=== PATIENT | male | born 1945 | race Asian ===

== ENCOUNTER 2018-10-16 14:38 | Emergency (ER) | payer OTHER ==
[~2018-10-16] VITALS: Ht 182.9 cm; Wt 93.0 kg
[2018-10-16 14:45] VITALS: BP 126/75; TEMP 97.4
== END 2018-10-16 17:13 | disposition home or self-care (01) ==
LOC: ED 14:38
PROC: 08C0XZZ Extirpation of Matter from Right Eye, External Approach (ICD-10-PCS; principal; 2018-10-16)
DX: H11.31 Conjunctival hemorrhage, right eye (principal); T15.91XA Foreign body on external eye, part unspecified, right eye, initial encounter
CPT/HCPCS: 99283